=== PATIENT | male | born 1970 | race Caucasian/White ===

== ENCOUNTER 2020-09-02 12:49 | Outpatient (REF) | payer MEDICAID, SELFPAY ==
[2020-09-02 14:32] LABS: Lithium 0.88 mmol/L (0.60-1.20)
[2020-09-02 14:35] LABS: Blood Urea Nitrogen 11 mg/dL (9-16); Estimated Glomerular Filt Rate > 60
[2020-09-02 14:52] LABS: Estimated Average Glucose 94 mg/dL; Hemoglobin A1c % 4.9 %
[2020-09-02 14:57] LABS: TSH reflex Free T4 4.02 mIU/mL (0.32-4.0)
[2020-09-02 15:36] LABS: Free T4 (Free Thyroxine) 0.84 ng/dL (0.71-1.85)
== END 2020-09-02 12:50 | disposition home or self-care (01) ==
LOC: HO.LAB 12:49
PROVIDERS: Visit Provider Clinical Nurse Specialist Psychiatric/Mental Health
DX: Z79.899 Other long term (current) drug therapy (principal)
CPT/HCPCS: 36415; 80178; 82565; 83036; 84439; 84443; 84520

== ENCOUNTER 2021-01-16 13:47 | Outpatient (REF) | payer MEDICAID, SELFPAY ==
[2021-01-16 14:34] LABS: Lithium 0.52 mmol/L (0.60-1.20)
[2021-01-16 14:37] LABS: Blood Urea Nitrogen 6 mg/dL (9-16); Estimated Glomerular Filt Rate > 60
[2021-01-16 14:59] LABS: Thyroid Stimulating Hormone 4.31 uIU/mL (0.32-4.0)
== END 2021-01-16 13:48 | disposition home or self-care (01) ==
LOC: HO.LAB 13:47
PROVIDERS: Visit Provider Clinical Nurse Specialist Psychiatric/Mental Health
DX: Z79.899 Other long term (current) drug therapy (principal)
CPT/HCPCS: 36415; 80178; 82565; 84443; 84520

== ENCOUNTER 2021-07-06 11:03 | Outpatient (REF) | payer MEDICAID, SELFPAY ==
[2021-07-06 12:31] LABS: Estimated Average Glucose 97 mg/dL; Lithium 0.52 mmol/L (0.60-1.20)
[2021-07-06 12:54] LABS: Alanine Aminotransferase 16 U/L (0-40); Albumin Level 4.9 g/dL (3.5-5.0); Alkaline Phosphatase 98 U/L (39-117); Anion Gap 19 (12-20); Aspartate Amino Transferase 15 U/L (5-37); Bilirubin Total 0.7 mg/dL (0.0-1.0); Blood Urea Nitrogen 9 mg/dL (9-16); Calcium 10.1 mg/dL (8.4-10.2); Carbon Dioxide 23 mmol/L (22-29); Chloride 105 mmol/L (96-108); Cholesterol 255 mg/dL; Estimated Glomerular Filt Rate > 60; Glucose Random 100 mg/dL (60-115); HDL Cholesterol 35 mg/dL; LDL Cholesterol Calculated 182 mg/dl; Sodium 143 mmol/L (135-145); Total Protein 8.2 g/dL (6.5-8.0); Triglycerides 190 mg/dL
[2021-07-06 13:18] LABS: Free T4 (Free Thyroxine) 0.97 ng/dL (0.71-1.85); TSH reflex Free T4 10.85 uIU/mL (0.32-4.0)
== END 2021-07-06 11:04 | disposition home or self-care (01) ==
LOC: HO.LABR 11:03
PROVIDERS: Visit Provider Registered Nurse
DX: Z79.899 Other long term (current) drug therapy (principal)
CPT/HCPCS: 36415; 80053; 80061; 80178; 83036; 84439; 84443

== ENCOUNTER 2021-09-16 09:16 | Outpatient (REF) | payer MEDICAID, SELFPAY ==
[2021-09-16 09:45] LABS: MANUAL DIFF FLAG NO
[2021-09-16 10:03] LABS: Basophils Absolute Auto 0.1 X10*3/uL (0.0-0.2); Basophils Percent Auto 0.6 % (0-2); Eosinophils Absolute Auto 0.2 X10*3/uL (0.0-0.4); Eosinophils Percent Auto 1.9 % (0-4); Hematocrit 43.7 % (42.0-52.0); Hemoglobin 14.5 g/dl (14.0-18.0); Imm Gran Abs Auto 0.03 X10*3/uL (0.00-0.03); Imm Gran Pct Auto 0.3 % (0.0-0.4); Lymphocytes Absolute Auto 2.9 X10*3/uL (1.2-4.9); Lymphocytes Percent Auto 29.2 % (20-40); Mean Corpuscular HGB Conc 33.2 g/dl (31.0-36.0); Mean Corpuscular Volume 93.4 fL (80.0-98.0); Mean Platelet Volume 10.2 fL (9.4-12.4); Monocytes Absolute Auto 0.7 X10*3/uL (0.1-1.2); Platelet Count 273 X10*3/uL (160-400); Red Blood Count 4.68 X10*6/uL (4.60-5.80); Red Cell Distribution Width 13.6 % (11.0-16.0); White Blood Count 9.8 X10*3/uL (4.8-10.8)
[2021-09-16 10:34] LABS: Alanine Aminotransferase 14 U/L (0-40); Albumin Level 4.5 g/dL (3.5-5.0); Alkaline Phosphatase 85 U/L (39-117); Anion Gap 13 (12-20); Aspartate Amino Transferase 12 U/L (5-37); Bilirubin Total 0.4 mg/dL (0.0-1.0); Blood Urea Nitrogen 8 mg/dL (9-16); Calcium 9.8 mg/dL (8.4-10.2); Carbon Dioxide 24 mmol/L (22-29); Chloride 109 mmol/L (96-108); Cholesterol 218 mg/dL; Estimated Glomerular Filt Rate > 60; Glucose Fasting 103 mg/dL (60-99); HDL Cholesterol 32 mg/dL; LDL Cholesterol Calculated 160 mg/dl; Rheumatoid Factor < 15.0 IU/mL (<15.0); Sodium 142 mmol/L (135-145); Total Protein 7.6 g/dL (6.5-8.0); Triglycerides 131 mg/dL
[2021-09-16 10:44] LABS: Erythrocyte Sedimentation Rate 30 MM/HR (0-15)
[2021-09-16 10:50] LABS: Free T4 (Free Thyroxine) 0.77 ng/dL (0.71-1.85); Prostate Specific Antigen Scr 1.54 ng/mL (<0.05-4.0); Thyroid Stimulating Hormone 7.81 uIU/mL (0.32-4.0)
[2021-09-17 03:27] LABS: Triiodothyronine T3 Total 131 ng/dL (76-181)
[2021-09-17 16:17] LABS: Cyclic Citrullinated Peptide <16 UNITS
[2021-09-17 16:52] LABS: CRP High Sensitivity >10.0 mg/L
[2021-09-17 23:16] LABS: Anti Nuclear Antibody Screen POSITIVE (NEGATIVE)
== END 2021-09-16 09:17 | disposition home or self-care (01) ==
LOC: HO.LAB 09:16
PROVIDERS: PCP Family Medicine; Visit Provider Family Medicine
DX: Z00.00 Encounter for general adult medical examination without abnormal findings (principal); M25.50 Pain in unspecified joint; E03.9 Hypothyroidism, unspecified; Z12.5 Encounter for screening for malignant neoplasm of prostate
CPT/HCPCS: 36415; 80053; 80061; 84153; 84439; 84443; 84480; 85025; 85652; 86038; 86039; 86141; 86200; 86431

== ENCOUNTER → 2021-10-06 13:31 | Outpatient (BNVA) | payer MEDICAID, SELFPAY | PROVIDERS: PCP Family Medicine; Visit Provider Dietitian, Registered | DX: E66.01 Morbid (severe) obesity due to excess calories (principal); R73.01 Impaired fasting glucose; Z68.41 Body mass index [BMI] 40.0-44.9, adult; Z71.3 Dietary counseling and surveillance | CPT/HCPCS: 97802 ==

== ENCOUNTER → 2021-11-23 13:48 | Outpatient (BNVA) | payer MEDICAID, SELFPAY | PROVIDERS: PCP Family Medicine; Visit Provider Dietitian, Registered | DX: R73.01 Impaired fasting glucose (principal); E66.9 Obesity, unspecified; Z68.38 Body mass index [BMI] 38.0-38.9, adult | CPT/HCPCS: 97803 ==

== ENCOUNTER 2021-11-26 12:56 | Outpatient (REF) | payer MEDICAID, SELFPAY ==
[2021-11-26 13:45] LABS: Lithium 0.37 mmol/L (0.60-1.20)
[2021-11-26 13:55] LABS: Cholesterol 187 mg/dL; HDL Cholesterol 30 mg/dL; LDL Cholesterol Calculated 132 mg/dl; Triglycerides 126 mg/dL
[2021-11-26 14:09] LABS: TSH reflex Free T4 1.75 uIU/mL (0.32-4.0)
== END 2021-11-26 12:57 | disposition home or self-care (01) ==
LOC: HO.LAB 12:56
PROVIDERS: PCP Family Medicine; Visit Provider Family Medicine
DX: Z00.00 Encounter for general adult medical examination without abnormal findings (principal); F31.9 Bipolar disorder, unspecified; E78.00 Pure hypercholesterolemia, unspecified; Z79.899 Other long term (current) drug therapy
CPT/HCPCS: 36415; 80061; 80178; 84443

== ENCOUNTER → 2022-01-25 13:27 | Outpatient (BNVA) | payer MEDICAID, SELFPAY | PROVIDERS: PCP Family Medicine; Visit Provider Dietitian, Registered | DX: R73.01 Impaired fasting glucose (principal); E66.9 Obesity, unspecified; Z68.36 Body mass index [BMI] 36.0-36.9, adult | CPT/HCPCS: 97803 ==

== ENCOUNTER 2022-04-08 06:33 | Outpatient (REF) | payer MEDICAID, SELFPAY ==
[2022-04-08 08:08] LABS: Thyroid Stimulating Hormone 5.57 uIU/mL (0.32-4.0)
[2022-04-11 11:37] LABS: Triiodothyronine T3 Total 134 ng/dL (76-181)
== END 2022-04-08 06:34 | disposition home or self-care (01) ==
LOC: HO.LAB 06:33
PROVIDERS: PCP Family Medicine; Visit Provider Family Medicine
DX: E03.9 Hypothyroidism, unspecified (principal)
CPT/HCPCS: 36415; 84439; 84443; 84480

== ENCOUNTER 2022-08-11 07:52 | Outpatient (REF) | payer MEDICAID, SELFPAY ==
[2022-08-11 09:07] LABS: Alanine Aminotransferase 14 U/L (0-40); Albumin Level 4.5 g/dL (3.5-5.0); Alkaline Phosphatase 103 U/L (39-117); Anion Gap 13 (12-20); Aspartate Amino Transferase 15 U/L (5-37); Bilirubin Total 0.4 mg/dL (0.0-1.0); Blood Urea Nitrogen 13 mg/dL (9-16); Calcium 9.9 mg/dL (8.4-10.2); Carbon Dioxide 27 mmol/L (22-29); Chloride 108 mmol/L (96-108); Estimated Glomerular Filt Rate > 60; Glucose Random 102 mg/dL (60-115); Potassium 4.8 mmol/L (3.3-5.1); Sodium 143 mmol/L (135-145); Total Protein 7.1 g/dL (6.5-8.0)
[2022-08-11 09:22] LABS: Alanine Aminotransferase 15 U/L (0-40); Albumin Level 4.6 g/dL (3.5-5.0); Alkaline Phosphatase 105 U/L (39-117); Anion Gap 14 (12-20); Aspartate Amino Transferase 16 U/L (5-37); Bilirubin Total 0.4 mg/dL (0.0-1.0); Blood Urea Nitrogen 13 mg/dL (9-16); Calcium 10.1 mg/dL (8.4-10.2); Carbon Dioxide 26 mmol/L (22-29); Chloride 109 mmol/L (96-108); Cholesterol 190 mg/dL; Estimated Glomerular Filt Rate > 60; Free T4 (Free Thyroxine) 0.98 ng/dL (0.71-1.85); Glucose Fasting 104 mg/dL (60-99); HDL Cholesterol 36 mg/dL; LDL Cholesterol Calculated 137 mg/dl; Potassium 4.9 mmol/L (3.3-5.1); Sodium 144 mmol/L (135-145); Thyroid Stimulating Hormone 1.83 uIU/mL (0.32-4.0); Total Protein 7.2 g/dL (6.5-8.0); Triglycerides 87 mg/dL
[2022-08-13 08:38] LABS: Triiodothyronine T3 Total 132 ng/dL (76-181)
== END 2022-08-11 07:53 | disposition home or self-care (01) ==
LOC: HO.LAB 07:52
PROVIDERS: Absent Provider Registered Nurse; PCP Family Medicine; Visit Provider Family Medicine
DX: Z00.00 Encounter for general adult medical examination without abnormal findings (principal); E78.00 Pure hypercholesterolemia, unspecified; E03.9 Hypothyroidism, unspecified; Z79.899 Other long term (current) drug therapy
CPT/HCPCS: 36415; 80053; 80061; 84439; 84443; 84480

== ENCOUNTER 2023-01-01 13:57 | Outpatient (REF) | payer MEDICAID, SELFPAY ==
--- NOTE | ~2023-01-01 | XR_ITS ---
EXAMINATION: LEFT KNEE, LEFT ANKLE CLINICAL INFORMATION: Pain after twisting injury and stepping into a COMPARISON: None available. TECHNIQUE: 5 views left knee, 4 views left ankle FINDINGS: Knee: Tricompartmental degenerative changes are present, most marked in the medial compartment with narrowing, sclerosis and osteophyte formation. A small knee joint effusion is present. No fractures are seen. Ankle: No significant abnormality is seen involving the ankle. A small area of enthesopathy noted at the Achilles tendon insertion. No fractures or dislocations XR/XR ankle LT min 3V IMPRESSION: No acute injury osseous. Tricompartmental degenerative changes in the knee with small knee joint effusion.
--- NOTE | ~2023-01-01 | XR_ITS ---
EXAMINATION: LEFT KNEE, LEFT ANKLE CLINICAL INFORMATION: Pain after twisting injury and stepping into a COMPARISON: None available. TECHNIQUE: 5 views left knee, 4 views left ankle FINDINGS: Knee: Tricompartmental degenerative changes are present, most marked in the medial compartment with narrowing, sclerosis and osteophyte formation. A small knee joint effusion is present. No fractures are seen. Ankle: No significant abnormality is seen involving the ankle. A small area of enthesopathy noted at the Achilles tendon insertion. No fractures or dislocations XR/XR knee LT 4V IMPRESSION: No acute injury osseous. Tricompartmental degenerative changes in the knee with small knee joint effusion.
== END 2023-01-01 13:58 | disposition home or self-care (01) ==
LOC: HO.HMGCX 13:57
PROVIDERS: PCP Family Medicine; Visit Provider Physician Assistant Medical
DX: M25.562 Pain in left knee (principal); M25.572 Pain in left ankle and joints of left foot
CPT/HCPCS: 73564; 73610

== ENCOUNTER 2023-02-01 09:37 | Outpatient (REF) | payer MEDICAID, SELFPAY ==
--- NOTE | ~2023-02-01 | XR_ITS ---
EXAMINATION: XR KNEE AP STANDING CLINICAL INFORMATION: Pain. COMPARISON: Radiographs dated 01/01/2023 and 09/27/2006. TECHNIQUE: AP bilateral standing view of the knees was obtained. FINDINGS: Bony alignment and mineralization are normal. The bilateral lateral joint space compartments are well-maintained. This moderate narrowing of the bilateral medial joint space compartments, with peripheral osteophyte formation. There is a very mild bilateral varus configuration. No fracture or dislocation is seen. A small sclerotic, well marginated bone island is seen at the lateral aspect of the left proximal tibial metaphysis. The soft tissue planes are unremarkable, without foreign body. 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 There is a secondary bilateral very mild varus configuration.
== END 2023-02-01 09:38 | disposition home or self-care (01) ==
LOC: HO.HOSX 09:37
PROVIDERS: Visit Provider Physician Assistant
DX: M17.12 Unilateral primary osteoarthritis, left knee (principal)
CPT/HCPCS: 73565; 99202

== ENCOUNTER 2023-04-08 06:27 | Outpatient (REF) | payer MEDICAID, SELFPAY ==
[2023-04-08 07:40] LABS: Lithium 0.32 mmol/L (0.60-1.20)
[2023-04-08 07:56] LABS: Alanine Aminotransferase 16 U/L (0-40); Albumin Level 4.2 g/dL (3.5-5.0); Alkaline Phosphatase 96 U/L (39-117); Anion Gap 11 (12-20); Aspartate Amino Transferase 14 U/L (5-37); Bilirubin Total 0.3 mg/dL (0.0-1.0); Blood Urea Nitrogen 11 mg/dL (9-16); Calcium 9.5 mg/dL (8.4-10.2); Carbon Dioxide 27 mmol/L (22-29); Chloride 109 mmol/L (96-108); Estimated Glomerular Filt Rate > 60; Glucose Random 125 mg/dL (60-115); Potassium 4.2 mmol/L (3.3-5.1); Sodium 143 mmol/L (135-145); Total Protein 7.3 g/dL (6.5-8.0)
[2023-04-08 08:12] LABS: TSH reflex Free T4 3.27 uIU/mL (0.32-4.0)
== END 2023-04-08 06:28 | disposition home or self-care (01) ==
LOC: HO.LAB 06:27
PROVIDERS: PCP Family Medicine; Visit Provider Nurse Practitioner Psychiatric/Mental Health
DX: Z79.899 Other long term (current) drug therapy (principal)
CPT/HCPCS: 36415; 80053; 80178; 84443

== ENCOUNTER 2023-04-30 09:58 | Outpatient (REF) | payer MEDICAID, SELFPAY ==
[2023-04-30 11:30] LABS: Lithium 0.72 mmol/L (0.60-1.20)
[2023-04-30 11:50] LABS: Alanine Aminotransferase 12 U/L (0-40); Albumin Level 4.3 g/dL (3.5-5.0); Alkaline Phosphatase 84 U/L (39-117); Anion Gap 11 (12-20); Aspartate Amino Transferase 12 U/L (5-37); Bilirubin Total 0.4 mg/dL (0.0-1.0); Blood Urea Nitrogen 13 mg/dL (9-16); Calcium 9.7 mg/dL (8.4-10.2); Carbon Dioxide 25 mmol/L (22-29); Chloride 111 mmol/L (96-108); Cholesterol 203 mg/dL (<200); Estimated Glomerular Filt Rate > 60; Glucose Fasting 107 mg/dL (60-99); HDL Cholesterol 36 mg/dL (>40); LDL Cholesterol Calculated 141 mg/dL (<100); Potassium 4.3 mmol/L (3.3-5.1); Sodium 143 mmol/L (135-145); Total Protein 7.5 g/dL (6.5-8.0); Triglycerides 131 mg/dL (<150)
[2023-04-30 12:07] LABS: Free T4 (Free Thyroxine) 0.83 ng/dL (0.71-1.85); Thyroid Stimulating Hormone 1.82 uIU/mL (0.32-4.0)
[2023-04-30 12:10] LABS: Estimated Average Glucose 97 mg/dL
[2023-05-01 21:24] LABS: Triiodothyronine T3 Total 130 ng/dL (76-181)
== END 2023-04-30 09:59 | disposition home or self-care (01) ==
LOC: HO.LAB 09:58
PROVIDERS: PCP Family Medicine; Visit Provider Nurse Practitioner Psychiatric/Mental Health
DX: Z00.00 Encounter for general adult medical examination without abnormal findings (principal); E03.9 Hypothyroidism, unspecified; E78.6 Lipoprotein deficiency; R73.01 Impaired fasting glucose; Z79.899 Other long term (current) drug therapy
CPT/HCPCS: 36415; 80053; 80061; 80178; 83036; 84439; 84443; 84480

== ENCOUNTER 2024-05-19 09:22 | Outpatient (REF) | payer OTHER, SELFPAY ==
[2024-05-19 09:43] LABS: MANUAL DIFF FLAG NO
[2024-05-19 10:13] LABS: Basophils Absolute Auto 0.1 X10*3/uL (0.0-0.2); Basophils Percent Auto 0.6 % (0-2); Eosinophils Absolute Auto 0.2 X10*3/uL (0.0-0.4); Eosinophils Percent Auto 2.2 % (0-4); Hematocrit 42.6 % (42.0-52.0); Hemoglobin 14.7 g/dl (14.0-18.0); Imm Gran Abs Auto 0.03 X10*3/uL (0.00-0.03); Imm Gran Pct Auto 0.4 % (0.0-0.4); Lymphocytes Absolute Auto 2.3 X10*3/uL (1.2-4.9); Lymphocytes Percent Auto 28.2 % (20-40); Mean Corpuscular HGB Conc 34.5 g/dl (31.0-36.0); Mean Corpuscular Volume 89.9 fL (80.0-98.0); Mean Platelet Volume 10.2 fL (9.4-12.4); Monocytes Absolute Auto 0.6 X10*3/uL (0.1-1.2); Monocytes Percent Auto 6.8 % (2-11); Neutrophils Percent Auto 61.8 % (45-73); Platelet Count 254 X10*3/uL (160-400); Red Blood Count 4.74 X10*6/uL (4.60-5.80); White Blood Count 8.1 X10*3/uL (4.8-10.8)
[2024-05-19 10:32] LABS: Lithium 0.75 mmol/L (0.60-1.20)
[2024-05-19 10:39] LABS: Amphetamine Screen Urine Not Detected (Not Detect); Barbiturates, Urine Not Detected (Not Detect); Benzodiazepines Screen Urine Not Detected (Not Detect); Buprenorphine Scr Not Detected (Not Detect); Cannabinoid Screen Urine POSITIVE (Not Detect); Cocaine Screen Urine Not Detected (Not Detect); Fentanyl, urine Not Detected (Not Detect); Methadone Screen, Urine Not Detected (Not Detect); Opiate Screen Urine Not Detected (Not Detect); Oxycodone Screen Urine Not Detected (Not Detect); Phencyclidine Screen Urine Not Detected (Not Detect)
[2024-05-19 10:42] LABS: Alanine Aminotransferase 11 U/L (0-40); Albumin Level 4.4 g/dL (3.5-5.0); Alkaline Phosphatase 90 U/L (39-117); Anion Gap 12 (12-20); Aspartate Amino Transferase 14 U/L (5-37); Bilirubin Total 0.5 mg/dL (0.0-1.0); Blood Urea Nitrogen 10 mg/dL (9-16); Calcium 9.8 mg/dL (8.4-10.2); Carbon Dioxide 25 mmol/L (22-29); Chloride 110 mmol/L (96-108); Cholesterol 197 mg/dL (<200); Estimated Glomerular Filt Rate > 60; Glucose Fasting 105 mg/dL (60-99); HDL Cholesterol 36 mg/dL (>40); LDL Cholesterol Calculated 137 mg/dL (<100); Sodium 143 mmol/L (135-145); Total Protein 7.3 g/dL (6.5-8.0); Triglycerides 124 mg/dL (<150)
[2024-05-19 10:50] LABS: Appearance Urine Clear; Color Urine Yellow; Glucose Urine UA Negative (Negative); Leukocyte Esterase Urine Negative (Negative); Nitrite Urine Negative (Negative); PH 8.5 (5.0-9.0); Specific Gravity - Urine 1.015 (1.005-1.025); Urine Blood Negative (Negative); Urine Ketones Negative (Negative); Urine Protein Negative (Neg-Trace)
[2024-05-19 10:56] LABS: Bacteria Urine None Seen (None Seen); Hyaline Casts Urine 0-2 /LPF (0-2); RBC Urine 0-2 /HPF (0-2); Squamous Epithelial Cell Urine 0-2 /HPF (0-2); WBC Urine 0-5 /HPF (0-5)
[2024-05-19 10:58] LABS: Thyroid Stimulating Hormone 1.36 uIU/mL (0.32-4.0)
== END 2024-05-19 09:23 | disposition home or self-care (01) ==
LOC: HO.LAB 09:22
PROVIDERS: Visit Provider Nurse Practitioner Psychiatric/Mental Health
DX: Z79.899 Other long term (current) drug therapy (principal)
CPT/HCPCS: 80053; 80061; 80178; 80307; 81001; 84443; 85025

== ENCOUNTER 2025-08-07 11:33 | Outpatient (AMB) | payer OTHER, SELFPAY ==
--- NOTE | 2025-08-07 11:35 | MHC.PC.OV ---
Vital Signs 08/07/25 11:40 Height 5 ft 7 in Weight 254 lb BMI 39.8 BP 136/74 Blood Pressure Location Lt brachial Position Sitting Respiration 16 Pulse 75 Pulse Source Pulse Oximeter Temp 98.0 F Temp Source Oral Pulse Oximetry (%) 96 Oxygen Delivery Method Room Air Intake Visit Reasons: Thyroid check Intake Note: patient here for follow up on thyroid [place] Paver Operator Required: No Allergies codeine (CODEINE) Allergy (Unknown, Verified 08/07/25 11:38) SWELLING Codeine Sulfate Allergy (Unknown, Uncoded 08/07/25 11:38) Rash Medication List - Last Reconciled 08/07/25 by Rey Aragon MD levothyroxine 75 mcg PO DAILY 90 days lithium carbonate 0 mg PO olanzapine 5 mg PO BEDTIME olanzapine 10 mg PO BEDTIME Tobacco use date assessed: 08/07/25 Dental Screening Dental Screen Date: 08/07/25 Did you have a dental visit in the last 12 months?: Yes Did you have a dental problem in the last 6 months where you did not have access to dental care?: No Was dental information given to patient?: Patient has dentist HPI Thyroid check HPI Details Patient presents with concerns that he is out of thyroid medication. He says he still had some thyroid medication until about a month ago. Would like to get lab work and restart this Also notes that he has gained quite a bit of weight He remains on olanzapine and lithium, provided by his psych med provider. We had also been discussing cholesterol and blood sugar at his last visit, quite some time ago. He would like to work on better health maintenance and follow-up on labs together at an upcoming appointment. No other complaints. [facility] Medical History (Updated 02/01/23 @ 09:03 by Maryana Oconnor) Thyroid condition Family History Mother No problems noted. Father No problems noted. Social History (Updated 02/01/23 @ 08:37 by NASIR Gr) Housing: House Patient Tobacco Use Status: Former Tobacco user Tobacco use type: Cigarette e-Cigarette/Vaping Use: Never Used Second Hand Smoke Exposure: No service: No Current occupational status: employed Current occupation: rt hand / maintance Current occupational exposures/hazards: No Cognitive needs: No Hearing needs: No Vision needs: No Questionnaire PHQ-9 Over the last 2 weeks, how often have you been bothered by any of the following problems? 1. Little interest or pleasure in doing things: not at all 2. Feeling down, depressed, or hopeless: not at all 3. Trouble falling or staying asleep, or sleeping too much: not at all 4. Feeling tired or having little energy: not at all 5. Poor appetite or overeating: nearly every day 6. Feeling bad about yourself - or that you are a failure or have let yourself or your family down: not at all 7. Trouble concentrating on things, such as reading the newspaper or watching television: not at all 8. Moving or speaking so slowly that other people could have noticed. Or the opposite - being so fidgety or restless that you have been moving around a lot more than usual: not at all 9. Thoughts that you would be better off or of hurting yourself in some way: not at all Total score: 3 Source: Developed by Drs. Gaurav Whitlock, Evelyn Brennan, Carroll Pringle and colleagues, with an educational bibi from [employer]. Thrive Questionnaire Date Thrive assessed: 08/11/21 I am a: Patient What is your living situation today?: I have a steady place to live Within the past 12 months, did the food you bought not last and you didn't have the money to get more?: Sometimes True Within the past 12 months, did you worry whether your food would run out before you got money to buy more?: Sometimes True Do you have trouble paying for medicines?: Yes Do you have trouble getting transportation to medical appointments?: No Do you have trouble paying your heating and electricity bill?: No Do you have trouble taking care of your child, family member or friend?: No Do you have trouble with day-to-day activities such as bathing, preparing meals, shopping, managing finances, etc.?: No Are you currently unemployed and looking for a job?: No Are you interested in more education?: No Please select the resources that you would like help with: None Currently or been in a relationship where the following occur: No concerns reported THRIVE Score: 2 AUDIT C Alcohol Use Questionnaire (AUDIT-C) 1. How often do you have a drink containing alcohol?: Never Total Score: 0 JERRY-7 AMB Questionnaire JERRY-7 Date JERRY - 7 assessed: 08/11/21 Feeling nervous, anxious, or on edge: 1 = Several days Not being able to stop or control worryin = Several days Worrying too much about different things: 1 = Several days Trouble relaxin = Not at all Being so restless that it is hard to sit still: 0 = Not at all Becoming easily annoyed or irritable: 0 = Not at all Feeling afraid as if something awful might happen: 1 = Several days Total JERRY-7 score (0-4 normal; 5-9 mild; 10-14 moderate; 15-21 severe): 4 Source: Developed by Drs. Gaurav Whitlock, Evelyn Brennan, Carroll Pringle and colleagues, with an educational bibi from [employer]. Review of Systems Const Denies chills, Denies fatigue, Denies fever(s), Denies headache(s) and Denies weakness ENT Denies dizziness and Denies headache(s) Card Denies chest pain, Denies lightheadedness, Denies dyspnea and Denies other (Palpitations) Resp Denies cough, Denies dyspnea, Denies wheezing and Denies other ( shortness of breath) Musc Denies numbness and Denies tingling Neuro Denies dizziness, Denies headache(s), Denies numbness, Denies tingling, Denies paresthesias and Denies weakness Psych Denies anxiety and Denies depression Endo Denies fatigue Aller/Immun Denies wheezing Physical exam (Primary Care) Vital Signs: Last Vital Signs Temp 98.0 F 08/07/25 11:40 Pulse 75 08/07/25 11:40 Resp 16 08/07/25 11:40 BP 136/74 08/07/25 11:40 Pulse Ox 96 08/07/25 11:40 Oxygen Delivery Method Room Air 08/07/25 11:40 BMI result Body Mass Index 39.8 Tobacco/Smoking Status: Tobacco use Status Tobacco use date assessed 08/07/25 08/07/25 11:44 Patient Tobacco Use Status Former Tobacco user 08/07/25 11:38 Tobacco use type Cigarette 08/07/25 11:38 e-Cigarette/Vaping Use Never Used 08/07/25 11:38 PHQ-9: PHQ-9 Score PHQ-9: Total score 3 08/07/25 11:38 Thrive Assessment: Date of Thrive Assessment Date Thrive assessed 08/11/21 08/07/25 11:38 Currently or been in a relationship where the following occur: No concerns reported Const General: no acute distress and well developed Nutritional Appearance: well nourished Orientation/consciousness: patient oriented x3 HENMT Head: Yes normocephalic and Yes atraumatic Eyes General: appearance normal, both eyes and all related structures Pupils: Equal, round and reactive pupils present EOM: EOMs intact bilaterally Resp Effort & Inspection: normal respiratory effort Auscultation: clear to auscultation bilaterally Cardio Rate: regular rate Rhythm: regular rhythm Heart sounds: S1 normal heart sound present, S2 normal heart sound present, no gallops, no murmurs and no rubs Neuro General: patient oriented x3 and gait normal Cranial nerves: Yes Equal, round and reactive pupils present Psych Affect: normal affect Coding Level of Care Code Est Pt Level 3 (67109) Diagnoses Hypothyroidism E03.9 Obesity (BMI 30-39.9) E66.9 Elevated fasting blood sugar R73.01 Hypercholesterolemia E78.00 Bipolar disorder F31.9 Assessment & Plan Assessment & Plan (1) Hypothyroidism: Code(s): E03.9 - Hypothyroidism, unspecified Category: Medical (2) Obesity (BMI 30-39.9): Comment: Pt reports making significant dietary modifications BMI at 36.9 on 01/25/22, BMI at 38.6 on 11/23/21 from 41.5 on 09/2021 Code(s): E66.9 - Obesity, unspecified Category: Medical (3) Elevated fasting blood sugar: Code(s): R73.01 - Impaired fasting glucose Category: Medical (4) Hypercholesterolemia: Code(s): E78.00 - Pure hypercholesterolemia, unspecified Category: Medical (5) Bipolar disorder: Code(s): F31.9 - Bipolar disorder, unspecified Category: Medical Plan Patient says he ran out of his levothyroxine about a month ago. Will resume levothyroxine We were also following his blood sugar and cholesterol. He will recheck his lab work prior to his next visit in 4-6 weeks. Thyroid hormone level may not yet be at steady state. We can review lab work together and arrange for follow-up at that visit. Patient agrees Orders: Orders Comprehensive [place]. Panel Fast Today Z00.00 - Encounter for general adult medical examination without abnormal findings Lipid Panel Today Z00.00 - Encounter for general adult medical examination without abnormal findings Prostate Specific Antigen Scr Today Z12.5 - Encounter for screening for malignant neoplasm of prostate UA CC w/rflx Micro + Cult Today Z00.00 - Encounter for general adult medical examination without abnormal findings [place] Today F31.9 - Bipolar disorder, unspecified, Z79.899 - Other alf (current) drug therapy Complete Blood Count Auto Diff Today Z00.00 - Encounter for general adult medical examination without abnormal findings Microalbumin, Random (w Creat) Today I10 - Essential (primary) hypertension Free T4 (Free Thyroxine) Today E03.9 - Hypothyroidism, unspecified Thyroid Stimulating Hormone Today E03.9 - Hypothyroidism, unspecified Triiodothyronine T3 Total Today E03.9 - Hypothyroidism, unspecified Medications: Refilled levothyroxine 75 mcg PO DAILY 90 tabs 0RF 90 days
[2025-08-07 11:40] VITALS: BP 136/74; PULSE 75; RESP 16; TEMP 36.7; O2SAT 96; BMI 39.8
--- OUTSIDE RECORDS SUMMARY | 2025-08-07 15:14 | XMS_ITS | Encounter Summary ---
Author Organization [facility] Address [address] [place] [address] Care Team Providers Care Salvage Worker Name Role Phone Unavailable Primary Care Provider Unavailabl e Reason for Visit * Reason Comments Med Change Request Encounter Details Date Type Department Care Team (Late st Contact Info) Description 07/17/2025 Refill [facility] ADULT DENTAL [address] [place] [address] Rosa M King DDS [address] [place] [address] Social History Tobacco Use Types Packs/Day Years Used Date Smoking Tobacco: Former Cigarettes Smokeless Tobacco: Never Sex and Gender Information Value Date Recorded Sex Assigned at Male 06/21/2022 10:24 AM EDT Legal Sex Male 10:24 AM EDT Gender Identity Male 07/17/2025 7:59 AM EST Sexual Orientation Straight 07/17/2025 7: 59 AM EST documented as of this encounter Miscellaneous Notes * Telephone Encounter - Rosa M King DDS - 07/17/2025 3:42 PM EST Approving, but needs appt for additional refills. documented in this encounter Plan of Treatment Not on file documented as of this encounter Visit Diagnoses Not on filedocumented in this encounter
--- OUTSIDE RECORDS SUMMARY | 2025-08-07 15:14 | XMS_ITS | Clinical Summary ---
Author Organization [employer] Address [address] [place] [address] Care Team Providers Care Auction Block Clerk Name Role Phone Unavailable Primary Care Provider Unavailabl e Allergies Active Allergy Reactions Criticality Noted Date Comments Codeine Rash Low 04/10/2013 Medications OLANZapine (ZyPREXA) 10 MG tablet Take 1 tablet by mouth at bedtime. 10/31/19 25 Active lithium 300 MG capsule Take 3 capsules by mouth 2 times daily. 10/31/19 25 Active levothyroxine (Synthroid, Levoxyl) 75 MCG tablet Take 1 tablet by mouth Once per day. 08/23/19 25 Active chlorhexidine (Peridex) 0.12 % solution SWISH 15 ML BY MOUTH FOR 30 SECONDS AND SPIT. REPEAT NEEDED FOR UP TO 14 DAYS 473 mL 07/17/20 25 Active Additional Information Patient not taking.Reported on 07/24/2025 amoxicillin-cl avulanate (Augmentin) 875-125 MG tablet Take 1 tablet by mouth 2 times daily for 7 days. 14 tablet 07/17/20 25 025 acetaminophen (Tylenol 8 Hour) 650 MG ER tablet Take 1 tablet (650 mg) by mouth every 8 (eight) hours if needed for moderate pain for up to 10 days. Do not crush, chew, or split. 15 tablet 07/17/20 25 025 chlorhexidine (Peridex) 0.12 % solution Use 15 mL in the mouth or throat if needed (for mouthwash 15 ml for 30 seconds, swish and spit) for up to 14 days. 473 mL 07/17/20 25 025 Discontinued chlorhexidine (Peridex) 0.12 % solution Use 15 mL in the mouth or throat if needed (for mouthwash 15 ml for 30 seconds, swish and spit, 3 times a day) for up to 14 days. 473 mL 07/17/20 025 Additional Information Patient not taking.Reported on 07/24/2025 ibuprofen 600 MG tablet Take 1 tablet (600 mg) by mouth every 6 (six) hours if needed for moderate pain for up to 10 days. 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 Pain in limb 07/17/2025 Plantar fasciitis 07/17/2025 Encounters Date Type Department Care Team Description 07/24/2025 8:00 AM EST Office Visit [facility] ADULT DENTAL [address] [place], [place] [id number] Jazlyn Romero Pain, dental (Primary Dx); Dental caries; Symptomatic irreversible pulpitis 07/17/2025 8:00 AM EST Office Visit [facility] ADULT DENTAL [address] [place] [address] Ferro-Desai, Rosa M, DDS Dental caries into pulp (Primary Dx) 07/17/2025 Orders Only [facility] ADULT DENTAL [address] [place] [address] Ferro-Desai, Rosa M, DDS 07/17/2025 Refill [facility] ADULT DENTAL [address] [place] [address] Ferro-Desai, Rosa M, DDS from Last 3 Months Social History Tobacco Use Types Packs/Day Years Used Date Smoking Tobacco: Former Cigarettes Smokeless Tobacco: Never Tobacco Cessation:Counseling Given: Not Answered Sex and Gender Information Value Date Recorded Sex Assigned at Male 06/21/2022 10:24 AM EDT Legal Sex Male 10:24 AM EDT Gender Identity Male 07/17/2025 7:59 AM EST Sexual Orientation Straight 07/17/2025 7: 59 AM EST Last Filed Vital Signs Vital Sign Reading Time Taken Comments Blood Pressure 130/70 07/24/2025 10:43 AM EST Pulse - - Temperature - - Respiratory Rate - - Oxygen Saturation - - Inhaled Oxygen Concentration - - Weight - - Height - - Body Mass Index - - Plan of Treatment Health Maintenance Due Date Last Done Comments CT Colonography 1968 Colonoscopy 1968 Colorectal Cancer Screening 1968 Dental Prophylaxis 1968 Depression Screening 1968 FIT DNA/Cologuard 1968 FIT 1968 FOBT 1968 HIV Screening 1968 Lipid Panel 1968 SDOH Screening 1968 Sigmoidoscopy 1968 Disability Screening 1968 Alcohol/Substance Use Screening 1980 Hepatitis C Screening 1986 DTaP/Tdap/Td Vaccines (1 - Tdap) 1987 Hepatitis B Vaccines (1 of 3 - 19+ 3-dose series) 1987 Dental Oral Exam 04/14/2010 10/14/2009 Dental X-Ray: Bitewings 02/26/2011 02/26/20 10, 10/10/2009 Dental X-Ray: Full Mouth 10/11/2012 10/10/2009 Pneumococcal Vaccine: 50+ Years (1 of 1 - PCV) 2018 Zoster Vaccines (1 of 2) 2018 COVID-19 Vaccine (3 - 2024-2 6 season) 2025 12/31/2020, 12/10/2020 Influenza Vaccine (#1) 2025 Tobacco Screening 07/24/2026 07/24/2025 RSV Patients and Patients Aged 60 years or older (1 - 1-dose 75+ series) 2043 HIB Vaccines Aged Out No longer eligi ble based on patient's age to complete this topic HPV Vaccines Aged Out No longer eligi ble based on patient's age to complete this topic Hepatitis A Vaccines Aged Out No long er eligible based on patient's age to complete this topic IPV Vaccines Aged Out No longer eligi ble based on patient's age to complete this topic Meningococcal B Vaccine Aged Out No l onger eligible based on patient's age to complete this topic Meningococcal Vaccine Aged Out No leonard elsy eligible based on patient's age to complete this topic RSV under 20 months Aged Out No longe r eligible based on patient's age to complete this topic Rotavirus Vaccines Aged Out No longer eligible based on patient's age to complete this topic Procedures Procedure Name Priority Date/Time Associated Diagnosis Comments 20 EXTRACTION, ERUPTED TOOTH REQ REMOVAL OF BONE AND/OR SECTIONING OF TOOTH Routine 07/24/2025 8:00 AM EST PALLIATIVE (EMERGENCY) TREATMENT OF DENTAL PAIN - MINOR PROCEDURE Routine 07/17/2025 8:00 AM EST Dental caries into pulp INTRAORAL - PERIAPICAL FIRST RADIOGRAPHIC IMAGE Routine 07/17/2025 8:00 AM EST Dental caries into pulp CASE PRESENTATION, DETAILED AND EXTENSIVE TREATMENT PLANNING Routine 07/17/2025 8:00 AM EST Dental caries into pulp BITEWINGS - 2 RADIOGRAPHIC IMAGES Routine 02/25/2010 12:00 AM EDT COMPREHENSIVE ORAL EVALUATION - NEW OR ESTABLISHED PATIENT Routine 10/14/2009 12:00 AM EST INTRAORAL - COMPLETE SERIES OF RADIOGRAPHIC IMAGES Routine 10/10/2009 12:00 AM EST from Last 3 Months or Most Recently Relevant to Health Maintenance Insurance DENTAL - HSN PARTIAL (MEDICAID)
--- OUTSIDE RECORDS SUMMARY | 2025-08-07 15:14 | XMS_ITS | Patient Health Record ---
Author Organization [facility] Address [address] [place] [address] Care Team Providers Care Macaroni Press Operator Name Role Phone Margaret TORRES, Alberto Primary Care Provider Kevin Carpenter Unavailable [phone] Allergies Allergen (clinical drug ingredient) Drug/Non Drug Allergy documented on EMR Reaction Allergy Type Onset Date Status codeine Codeine rash Drug Allergy Active Reason For Referral No Information Medications Medication SIG (Take, Route, Fr equency, Duration) Notes Start Date End Date Status aleve Active OLANZapine Active [place] Carbonate Ac tive Problems Problem Type SNOMED Code ICD Code Onset Dates Problem Status W/U Status Risk Notes Problem Plantar fasciitis (633179698) Plantar Fasciitis (728.71) Active confirmed Problem Congenital pes cavus (242883826) Cavus Foot (754.71) Active confirmed Problem Pain in limb (80204921) Pain in Limb (729.5) Active confirmed Plan Of Treatment Pending Test Test Name Order Date X ray : Foot, left 2V 06/13/2013 X ray : Foot, right 2V 06/13/2013 [id number] Destruction, 1-14 08/01/2013 [id number] Destruction, 1-14 09/12/2013 Medical (General) History Medical History History ICD Code chicken pox hepatitis C
== END 2025-08-07 11:55 | disposition home or self-care (01) ==
LOC: HO.HMCFM 11:34
PROVIDERS: Visit Provider Family Medicine
DX: E03.9 Hypothyroidism, unspecified (principal); F31.9 Bipolar disorder, unspecified; Z68.39 Body mass index [BMI] 39.0-39.9, adult; E66.9 Obesity, unspecified; R73.01 Impaired fasting glucose; E78.00 Pure hypercholesterolemia, unspecified